=== PATIENT | female | born 1995 | race Caucasian/White ===

== ENCOUNTER 2016-05-30 20:19 | Emergency (ER) | payer OTHER ==
[~2016-05-30] VITALS: Ht 160 cm; Wt 70.8 kg
[~2016-05-30 20:19] MED LIST: BACTRIM DS 8001 TA1 PO; CLARITIN10 MG PO; CYCLOBENZAPRINE10 MG PO; IBUPROFEN600 MG PO; KEFLEX500 MG PO; MEDROL DOSEPAK4 MG PO; MOTRIN800 MG PO; NAPROSYN500 MG PO; NITROFURANTOIN100 MG PO; NORCO 325 MG-51 TAB PO; PARAFON FORTE500 MG PO; PYRIDIUM200 MG PO; SEPTRA DS 800 M1 TAB PO; TYLENOL W/CODEI1 TA2 PO; VICO75300 PO; ZITHROMAX500 MG PO; ZOFRAN ODT4 MG SL
[2016-05-30] MEDS ORDERED: PRENATAL1 TA3 PO (20:56)
[2016-05-30] MEDS ORDERED: PROBIOTIC250 MG PO (20:57)
== END 2016-05-30 22:10 | disposition home or self-care (01) ==
LOC: ED 20:19
DX: S81.012A Laceration without foreign body, left knee, initial encounter (principal); Z79.899 Other long term (current) drug therapy; Z88.0 Allergy status to penicillin; Z88.1 Allergy status to other antibiotic agents; W18.09XA Striking against other object with subsequent fall, initial encounter; Y93.68 Activity, volleyball (beach) (court); Y92.89 Other specified places as the place of occurrence of the external cause; Y99.9 Unspecified external cause status

== ENCOUNTER → 2017-07-07 | Outpatient (CLI) | payer OTHER ==
[~2017-07-07] MED LIST changes: +PRENATAL1 TA3 PO; +PROBIOTIC250 MG PO
== END | disposition home or self-care (01) ==
LOC: LAB 13:10
DX: N91.2 Amenorrhea, unspecified (principal)

== ENCOUNTER 2019-05-30 05:54 | Emergency (ER) | payer SELFPAY ==
[~2019-05-30] VITALS: Ht 160 cm; Wt 81.6 kg
[2019-05-30 07:14] LABS: BASO % 0.3 % (0.0-1.0); HEMATOCRIT 43.4 % (37.0-47.0); HEMOGLOBIN 14.1 g/dl (12.0-16.0); LYMPH # 1.4 10*3/uL (1.3-4.4); LYMPH % 18.1 % (27.0-41.0); MEAN CELL VOLUME 82.2 fl (81.0-99.0); MEAN CORPUSCULAR HGB 26.7 pg (27.0-31.0); MEAN CORPUSCULAR HGB CONC 32.5 g/dl (33.0-37.0); MONO # 0.2 10*3/uL (0.1-1.0); MONO % 2.3 % (3.0-9.0); PLATELET COUNT AUTOMATED 245 10*3/uL (130-400); RED BLOOD COUNT 5.28 10*6/uL (4.10-5.10); RED CELL DISTRI WIDTH 13.1 % (0-14.5); WHITE BLOOD COUNT 7.5 10*3/uL (4.8-10.8)
[2019-05-30 07:33] LABS: ALBUMIN 3.8 gm/dl (3.1-4.5); ALKALINE PHOSPHATASE 97 U/L (45-117); BUN 10 mg/dl (7-24); CHLORIDE 106 mmol/L (98-107); CREATININE 0.82 mg/dL (0.55-1.02); SGOT/AST 18 IU/L (3-35); SGPT/ALT 38 U/L (12-78); SODIUM 136 mmol/L (136-145); TOTAL PROTEIN 8.1 gm/dL (6.4-8.2)
[2019-05-30 08:38] LABS: BILIRUBIN 1+ (NEGATIVE); BLOOD 3+ (NEGATIVE); CLARITY SL CLOUDY (CLEAR); COLOR YELLOW (YELLOW); GLUCOSE NEGATIVE (NEGATIVE); KETONE TRACE (NEGATIVE)
[2019-05-30 08:39] LABS: LEUKO ESTERASE TRACE (NEGATIVE); NITRITE NEGATIVE (NEGATIVE); PH 6.5 (5.0-9.0); UROBILINOGEN 0.2 E.U./dl (0.2-1.0)
[2019-05-30 08:40] LABS: BACTERIA 1+; EPITHELIAL CELLS 40-50; MUCOUS 1+
[2019-05-30] MEDS ORDERED: ZOFRAN4 MG PO (09:06)
== END 2019-05-30 09:15 | disposition home or self-care (01) ==
LOC: ED 05:54
PROVIDERS: Emergency Medicine
DX: R11.10 Vomiting, unspecified (principal); R50.9 Fever, unspecified; R42 Dizziness and giddiness; H92.09 Otalgia, unspecified ear

== ENCOUNTER → 2020-01-31 | Outpatient (CLI) | payer BC ==
[~2020-01-31] MED LIST changes: +ZOFRAN4 MG PO
== END | disposition home or self-care (01) ==
LOC: US 10:16
PROVIDERS: ATTEND Nurse Practitioner Women's Health
DX: O34.81 Maternal care for other abnormalities of pelvic organs, first trimester (principal); N83.11 Corpus luteum cyst of right ovary; Z3A.01 Less than 8 weeks gestation of pregnancy

== ENCOUNTER → 2020-09-06 | Outpatient (CLI) | payer MEDICAID | END | disposition home or self-care (01) | LOC: US 12:51 | PROVIDERS: ATTEND Obstetrics & Gynecology | DX: Z34.83 Encounter for supervision of other normal pregnancy, third trimester (principal); Z3A.36 36 weeks gestation of pregnancy ==

== ENCOUNTER → 2023-05-09 | Outpatient (CLI) | payer SELFPAY ==
[2023-05-09 10:12] LABS: BASO % 0.3 % (0.0-1.0); EOS # 0.1 10*3/uL (0.0-0.4); EOS % 0.8 % (1.0-4.0); HEMATOCRIT 39.6 % (37.0-47.0); LYMPH # 2.4 10*3/uL (1.3-4.4); LYMPH % 31.1 % (27.0-41.0); MEAN CELL VOLUME 82.7 fl (81.0-99.0); MEAN CORPUSCULAR HGB 26.3 pg (27.0-31.0); MEAN CORPUSCULAR HGB CONC 31.8 g/dl (33.0-37.0); MEAN PLATELET VOLUME 12.1 fl (9.6-12.3); MONO # 0.5 10*3/uL (0.1-1.0); MONO % 6.9 % (3.0-9.0); NEUT # 4.8 10*3/uL (2.3-7.9); NEUT % 60.6 % (47.0-73.0); PLATELET COUNT AUTOMATED 236 10*3/uL (130-400); RED BLOOD COUNT 4.79 10*6/uL (4.10-5.10); RED CELL DISTRI WIDTH 13.2 % (0-14.5); WHITE BLOOD COUNT 7.8 10*3/uL (4.8-10.8)
[2023-05-09 10:52] LABS: ALKALINE PHOSPHATASE 67 U/L (46-116); BUN 7 mg/dl (9-23); CHLORIDE 107 mmol/L (98-107); POTASSIUM 3.7 mmol/L (3.4-5.1); SGPT/ALT 27 U/L (5-49); TOTAL PROTEIN 7.2 gm/dL (6.0-8.0)
== END ==
LOC: LAB 09:12
PROVIDERS: ATTEND Family Medicine
DX: N91.2 Amenorrhea, unspecified (principal)

== ENCOUNTER 2023-05-29 13:51 | Emergency (ER) | payer SELFPAY ==
[~2023-05-29] VITALS: Ht 160 cm; Wt 85.7 kg
[2023-05-29] MEDS ORDERED: Metoclopramide Hydrochloride 10 MG/2 ML AMP IV ONE (14:15)
[2023-05-29] MEDS ORDERED: SODIUM CHLORIDE 0.9% 1,000 ML IV ONE (14:15)
[2023-05-29 14:35] LABS: BASO % 0.3 % (0.0-1.0); EOS # 0.1 10*3/uL (0.0-0.4); HEMATOCRIT 48.6 % (37.0-47.0); LYMPH # 1.6 10*3/uL (1.3-4.4); MEAN CELL VOLUME 81.1 fl (81.0-99.0); MEAN CORPUSCULAR HGB 25.9 pg (27.0-31.0); MEAN CORPUSCULAR HGB CONC 31.9 g/dl (33.0-37.0); MEAN PLATELET VOLUME 12.1 fl (9.6-12.3); MONO # 0.6 10*3/uL (0.1-1.0); MONO % 4.7 % (3.0-9.0); NEUT # 10.9 10*3/uL (2.3-7.9); NEUT % 81.6 % (47.0-73.0); PLATELET COUNT AUTOMATED 261 10*3/uL (130-400); RED BLOOD COUNT 5.99 10*6/uL (4.10-5.10); RED CELL DISTRI WIDTH 12.7 % (0-14.5); WHITE BLOOD COUNT 13.3 10*3/uL (4.8-10.8)
[2023-05-29 15:06] LABS: ALKALINE PHOSPHATASE 102 U/L (46-116); CHLORIDE 103 mmol/L (98-107); POTASSIUM 3.9 mmol/L (3.4-5.1); SGPT/ALT 71 U/L (5-49); TOTAL PROTEIN 8.6 gm/dL (6.0-8.0)
[2023-05-29 15:07] LABS: BUN < 5 mg/dl (9-23)
[2023-05-29 16:26] LABS: BILIRUBIN Negative (Negative); BLOOD Negative (Negative); CLARITY Clear (Clear); COLOR Yellow (Yellow); GLUCOSE Negative (Negative); KETONE 4+ (Negative); LEUKO ESTERASE Negative (Negative); NITRITE Negative (Negative); PH 5.5 (4.5-8.0)
[2023-05-29 16:37] LABS: RBC 0-2 rbc/hpf (0-2); WBC 0-2 wbc/hpf (0-5)
[2023-05-29] MEDS ORDERED: REGLAN5 MG PO (16:47)
== END 2023-05-29 17:16 | disposition home or self-care (01) ==
LOC: ED 13:51
PROVIDERS: Physician Assistant Medical
DX: O21.0 Mild hyperemesis gravidarum (principal); R10.2 Pelvic and perineal pain; Z88.0 Allergy status to penicillin; Z88.8 Allergy status to other drugs, medicaments and biological substances; Z90.89 Acquired absence of other organs; Z98.890 Other specified postprocedural states; Z3A.08 8 weeks gestation of pregnancy

== ENCOUNTER 2024-03-22 17:57 | Inpatient (IN) | payer BC ==
[~2024-03-22] VITALS: Ht 160 cm; Wt 91.6 kg
[~2024-03-22 17:57] MED LIST changes: +REGLAN5 MG PO
[2024-03-22 19:02] VITALS: BP 126/80
[2024-03-22] MEDS ORDERED: Ondansetron Hydrochloride 4 MG/2 ML VIAL IV ONE (19:30)
[2024-03-22] MEDS ORDERED: SODIUM CHLORIDE 0.9% 1,000 ML IV ONE ×2 (19:30→23:00)
[2024-03-22] MEDS ORDERED: IOHEXOL 300 MG/ML 100 ML VIAL IV ONE (19:40)
[2024-03-22 19:55] LABS: BASO % 0.4 % (0.0-1.0); EOS # 0.1 10*3/uL (0.0-0.4); EOS % 1.8 % (1.0-4.0); HEMATOCRIT 41.5 % (37.0-47.0); MEAN CELL VOLUME 78.9 fl (81.0-99.0); MEAN CORPUSCULAR HGB 24.1 pg (27.0-31.0); MEAN CORPUSCULAR HGB CONC 30.6 g/dl (33.0-37.0); MEAN PLATELET VOLUME 11.2 fl (9.6-12.3); MONO # 0.6 10*3/uL (0.1-1.0); MONO % 8.4 % (3.0-9.0); NEUT # 4.7 10*3/uL (2.3-7.9); NEUT % 61.8 % (47.0-73.0); PLATELET COUNT AUTOMATED 292 10*3/uL (130-400); RED BLOOD COUNT 5.26 10*6/uL (4.10-5.10); RED CELL DISTRI WIDTH 14.9 % (0-14.5); WHITE BLOOD COUNT 7.6 10*3/uL (4.8-10.8)
[2024-03-22 20:15] LABS: ALKALINE PHOSPHATASE 229 U/L (46-116); BUN 14 mg/dl (9-23); CHLORIDE 105 mmol/L (98-107); LIPASE 51 U/L (12-53); SGPT/ALT 851 U/L (5-49); TOTAL PROTEIN 8.3 gm/dL (6.0-8.0)
[2024-03-22 20:40] LABS: BILIRUBIN Negative (Negative); BLOOD Negative (Negative); CLARITY Clear (Clear); COLOR Yellow (Yellow); GLUCOSE Negative (Negative); KETONE Negative (Negative); LEUKO ESTERASE Negative (Negative); NITRITE Negative (Negative); UROBILINOGEN 0.2 E.U./dl (0.0-1.0)
[2024-03-22 20:51] LABS: EPITHELIAL CELLS 0-2; WBC 0-2 wbc/hpf (0-5)
[2024-03-22] MEDS ORDERED: MORPHINE Sulfate 2 MG/ML SYR IV PRN (22:45)
[2024-03-22] MEDS ORDERED: Ondansetron Hydrochloride 4 MG/2 ML VIAL IV PRN (22:45)
[2024-03-23] VITALS (11 sets, daily range): BP systolic 105–127; BP diastolic 55–80
[2024-03-23] MEDS ORDERED: Pantoprazole Sodium 40 MG VIAL IV SCH (06:00)
[2024-03-23] MEDS ORDERED: METRONIDAZOLE 100 ML IV SCH (06:00)
[2024-03-23 06:39] LABS: BASO % 0.3 % (0.0-1.0); EOS # 0.2 10*3/uL (0.0-0.4); EOS % 1.6 % (1.0-4.0); HEMATOCRIT 38.7 % (37.0-47.0); MEAN CORPUSCULAR HGB 24.2 pg (27.0-31.0); MEAN CORPUSCULAR HGB CONC 30.2 g/dl (33.0-37.0); MEAN PLATELET VOLUME 11.7 fl (9.6-12.3); MONO # 0.7 10*3/uL (0.1-1.0); MONO % 6.8 % (3.0-9.0); NEUT # 6.6 10*3/uL (2.3-7.9); NEUT % 68.3 % (47.0-73.0); PLATELET COUNT AUTOMATED 279 10*3/uL (130-400); RED BLOOD COUNT 4.84 10*6/uL (4.10-5.10); RED CELL DISTRI WIDTH 15.1 % (0-14.5); WHITE BLOOD COUNT 9.7 10*3/uL (4.8-10.8)
[2024-03-23 07:00] LABS: ALKALINE PHOSPHATASE 212 U/L (46-116); BUN 14 mg/dl (9-23); CHLORIDE 108 mmol/L (98-107); CHOLESTEROL 136 mg/dL (<200); LDL CHOLESTEROL 60 mg/dL (9-159); SGPT/ALT 712 U/L (5-49); TOTAL PROTEIN 7.4 gm/dL (6.0-8.0); TRIGLYCERIDES 44 mg/dl (<150)
[2024-03-23] MEDS ORDERED: CIPROFLOXACIN 200 ML IV SCH (10:00)
[2024-03-23] MEDS ORDERED: BUPIVACAINE 0.5% 30 ML IV ONE (11:51)
[2024-03-23] MEDS ORDERED: ACETAMINOPHEN 100 ML IV ONE (12:28)
[2024-03-23] MEDS ORDERED: Lactated Ringer's Solution 1,000 ML IV ONE (12:28)
[2024-03-23] MEDS ORDERED: HYDROCODONE-AC1 EAC1 PO (13:28)
[2024-03-23] MEDS ORDERED: HYDROmorphONE Hydrochloride 0.5 MG/0.5 ML SYRINGE IV PRN (13:55)
[2024-03-24] MEDS ORDERED: ROCURONIUM BROMIDE 50 MG/5 ML SYRINGE IV ONE (07:25)
[2024-03-24] MEDS ORDERED: Midazolam Hydrochloride 2 MG/2 ML VIAL IV ONE (07:25)
[2024-03-24] MEDS ORDERED: PROPOFOL 200 MG/20 ML VIAL IV ONE (07:25)
[2024-03-24] MEDS ORDERED: Ondansetron Hydrochloride 4 MG/2 ML VIAL IV ONE (07:25)
[2024-03-24] MEDS ORDERED: SUGAMMADEX SODIUM 200 MG/2 ML VIAL IV ONE (07:25)
[2024-03-24] MEDS ORDERED: Lidocaine Hydrochloride 2% 5 ML SDV IV ONE (07:25)
[2024-03-24] MEDS ORDERED: fentaNYL CITRATE 100 MCG/2 ML VIAL IV ONE (07:25)
[2024-03-24] MEDS ORDERED: Ketorolac Tromethamine 30 MG/ML VIAL IV ONE (07:25)
[2024-03-24] MEDS ORDERED: Dexamethasone Sodium Phospha 4 MG/ML VIAL IV ONE (07:25)
[2024-03-24] MEDS ORDERED: SEVOFLURANE 250 ML BOT INH ONE (07:25)
== END 2024-03-23 20:30 | disposition home or self-care (01) | DRG 769 ==
LOC: ED 17:57 → 4E 22:12 → EDHOLD 22:12 → 4E 03-23 01:13
PROVIDERS: Internal Medicine; Nurse Practitioner Family; ADMIT Internal Medicine; ATTEND Internal Medicine
PROC: 0FT44ZZ Resection of Gallbladder, Percutaneous Endoscopic Approach (ICD-10-PCS; principal; 2024-03-23)
DX: O99.63 Diseases of the digestive system complicating the puerperium (principal); K80.71 Calculus of gallbladder and bile duct without cholecystitis with obstruction; R74.01 Elevation of levels of liver transaminase levels; Z82.49 Family history of ischemic heart disease and other diseases of the circulatory system; Z88.0 Allergy status to penicillin; Z88.8 Allergy status to other drugs, medicaments and biological substances